=== PATIENT | female | born 1955 | race Two or more races ===

== ENCOUNTER 2023-06-10 15:02 | Emergency (ER) | payer OTHER ==
[~2023-06-10] VITALS: Ht 175.3 cm; Wt 81.6 kg
[~2023-06-10 15:02] MED LIST: ASA81 MG PO; CIPRO500 MG PO; CRESTOR20 MG; CRESTOR20 MG PO; FLAGYL500MG PO; INTESTINEX680 MG PO; TRILIPIX45 MG PO
[2023-06-10] MEDS ORDERED: SYNJARDY XR 101 EACH PO (15:36)
[2023-06-10] MEDS ORDERED: TRULICITY1.5 MG/0.5 SQ (15:37)
[2023-06-10] MEDS ORDERED: LOSARTAN POTASS50 MG PO (15:37)
== END 2023-06-10 18:35 | disposition home or self-care (01) ==
LOC: ER 15:02
DX: S90.121A Contusion of right lesser toe(s) without damage to nail, initial encounter (principal); W19.XXXA Unspecified fall, initial encounter; Y93.89 Activity, other specified; Y92.89 Other specified places as the place of occurrence of the external cause